=== PATIENT | female | born 1950 | race Caucasian/White ===

== ENCOUNTER 2017-05-19 17:46 | Emergency (ER) | END 2017-05-20 02:20 | disposition home or self-care (01) ==

== ENCOUNTER 2017-08-05 12:01 | Emergency (ER) | END 2017-08-05 17:55 | disposition home or self-care (01) ==

== ENCOUNTER 2018-12-01 10:21 | Emergency (ER) | payer OTHER ==
[~2018-12-01] VITALS: Ht 170.2 cm; Wt 120.5 kg
[~2018-12-01 10:21] MED LIST: CLON0.5T14 PO; CYCL10TA7 PO; DIAZ5TAB PO; ERGO500013 PO; HYDR-3980 PO; IBUP-1542 PO; IBUP800T48 PO; LEVO150T7 PO; LEVO175T6 PO; NALO4SPR NS; OMEP20CA16 PO; ONDA4TAB14 PO; RIZA5TAB16 PO; TRAZ-111 PO
[2018-12-01 10:32] VITALS: BP 135/85; PULSE 91; RESP 18; Ht 170.2 cm; Wt 120.5 kg
[2018-12-01] MEDS ORDERED: HYDROCODONE/APAP (10/325) TAB PO ONE ×2 (11:00→14:00)
== END 2018-12-01 14:08 | disposition home or self-care (01) ==
LOC: FTE 10:21
DX: S42.211A Unspecified displaced fracture of surgical neck of right humerus, initial encounter for closed fracture (principal); J45.909 Unspecified asthma, uncomplicated; W01.0XXA Fall on same level from slipping, tripping and stumbling without subsequent striking against object, initial encounter; Y92.009 Unspecified place in unspecified non-institutional (private) residence as the place of occurrence of the external cause
CPT/HCPCS: 71045; 73200